=== PATIENT | female | born 1975 | race Hispanic/Latino ===

== ENCOUNTER → 2021-01-07 | Outpatient (CLI) | payer MEDICAID | END | disposition home or self-care (01) | LOC: OIH 15:04 | PROVIDERS: ATTEND Internal Medicine | DX: M24.811 Other specific joint derangements of right shoulder, not elsewhere classified (principal); M23.90 Unspecified internal derangement of unspecified knee | CPT/HCPCS: 73030 ==

== ENCOUNTER → 2021-11-21 | Outpatient (CLI) | payer MEDICAID ==
[~2021-11-21] MED LIST: CEFAZOLIN SODIUM 1 GM VIAL ONE; PAPAVERINE HCL 30 MG/ML 2ML VIAL ONE
== END | disposition home or self-care (01) ==
LOC: SHCH 12:48
PROVIDERS: ATTEND Student in an Organized Health Care Education/Training Program
DX: R94.31 Abnormal electrocardiogram [ECG] [EKG] (principal)
CPT/HCPCS: 93306; J2440; J0690; J1644

== ENCOUNTER → 2021-11-22 | Outpatient (CLI) | payer MEDICAID ==
[~2021-11-22] MED LIST changes: -CEFAZOLIN SODIUM 1 GM VIAL ONE; -PAPAVERINE HCL 30 MG/ML 2ML VIAL ONE; +REGADENOSON 0.4 MG/5 ML PF SYG IVP SCH
== END | disposition home or self-care (01) ==
LOC: SHCH 09:21
PROVIDERS: ATTEND Student in an Organized Health Care Education/Training Program
DX: R94.31 Abnormal electrocardiogram [ECG] [EKG] (principal)
CPT/HCPCS: 78452; 96374; 93017; J2785; A9500 ×2

== ENCOUNTER → 2022-07-24 | Outpatient (CLI) | payer MEDICAID | END | disposition home or self-care (01) | LOC: RAH 13:28 | PROVIDERS: ATTEND Obstetrics & Gynecology | DX: R10.2 Pelvic and perineal pain (principal) | CPT/HCPCS: 76856 ==

== ENCOUNTER 2023-12-12 14:41 | Emergency (ER) | payer BC, MEDICAID ==
[~2023-12-12] VITALS: Ht 152.4 cm; Wt 71.7 kg
[2023-12-12 14:43] VITALS: TEMP 98.3
[2023-12-12 15:00] LABS: BASOPHILS # (AUTO) 0.03 K/uL (0.00-0.20); BASOPHILS % (AUTO) 0.3 % (0.0-5.0); EOSINOPHILS # (AUTO) 0.12 K/uL (0.00-0.70); HEMATOCRIT 37.8 % (36-48); IMMATURE GRANULOCYTE ABSOLUTE 0.06 K/uL (0-1); LYMPHOCYTES # (AUTO) 3.5 K/uL (1.0-4.8); MEAN CORPUSCULAR HEMOGLOBIN 29.2 pg (27.0-33.0); MEAN CORPUSCULAR HGB CONC 33.6 g/dL (32.0-36.0); MEAN CORPUSCULAR VOLUME 86.9 fL (79-99); MONOCYTES # (AUTO) 0.7 K/uL (0.1-1.0); MONOCYTES % (AUTO) 5.6 % (3.0-13.0); NEUTROPHILS # (AUTO) 7.3 K/uL (1.8-7.7); NEUTROPHILS % (AUTO) 62.6 % (40.0-77.0); PLATELET COUNT (AUTO) 341 K/uL (130-400); RED BLOOD CELL COUNT(AUTO) 4.35 MIL/uL (4.00-5.50); RED CELL DISTRIBUTION WIDTH 12.6 % (11.0-15.5); WHITE BLOOD COUNT (AUTO) 11.7 K/uL (4.8-10.8)
[2023-12-12 15:09] LABS: CREATININE 0.7 mg/dL (0.5-1.0); POTASSIUM 3.9 mmol/L (3.5-5.1)
[2023-12-12 15:34] LABS: B-TYPE NATRIURETIC PEPTIDE 8 pg/mL (0-100)
[2023-12-12] MEDS: ASPIRIN 325MG TAB PO ONE (15:42)
[2023-12-12 16:27] VITALS: BP 135/81; PULSE 86; RESP 17; O2SAT 99
[2023-12-12] MEDS ORDERED: IBUP-2077 PO (16:27)
== END 2023-12-12 16:41 | disposition home or self-care (01) ==
LOC: EDH 14:41
DX: R07.89 Other chest pain (principal); E11.65 Type 2 diabetes mellitus with hyperglycemia; I21.9 Acute myocardial infarction, unspecified; Z90.49 Acquired absence of other specified parts of digestive tract
CPT/HCPCS: 36415; 71045; 80048; 82550; 83880; 84484; 85025; 93005

== ENCOUNTER 2024-06-16 19:26 | Observation (INO) | payer BC, OTHER ==
[~2024-06-16] VITALS: Ht 152.4 cm; Wt 78.9 kg
[~2024-06-16 19:26] MED LIST changes: +IBUP-2077 PO; -REGADENOSON 0.4 MG/5 ML PF SYG IVP SCH
[2024-06-16 20:04] LABS: BASOPHILS # (AUTO) 0.04 K/uL (0.00-0.20); BASOPHILS % (AUTO) 0.2 % (0.0-5.0); EOSINOPHILS # (AUTO) 0.02 K/uL (0.00-0.70); EOSINOPHILS % (AUTO) 0.1 % (0.0-8.0); HEMATOCRIT 39.9 % (36-48); IMMATURE GRANULOCYTE ABSOLUTE 0.09 K/uL (0-1); LYMPHOCYTES # (AUTO) 1.4 K/uL (1.0-4.8); LYMPHOCYTES % (AUTO) 7.9 % (21.0-51.0); MEAN CORPUSCULAR HEMOGLOBIN 29.2 pg (27.0-33.0); MEAN CORPUSCULAR HGB CONC 33.1 g/dL (32.0-36.0); MEAN CORPUSCULAR VOLUME 88.3 fL (79-99); MONOCYTES # (AUTO) 0.2 K/uL (0.1-1.0); NEUTROPHILS # (AUTO) 15.6 K/uL (1.8-7.7); NEUTROPHILS % (AUTO) 90.3 % (40.0-77.0); PLATELET COUNT (AUTO) 352 K/uL (130-400); RED BLOOD CELL COUNT(AUTO) 4.52 MIL/uL (4.00-5.50); WHITE BLOOD COUNT (AUTO) 17.3 K/uL (4.8-10.8)
[2024-06-16] MEDS: Solu-medROL 125MG VIAL IVP ONE (20:06)
[2024-06-16 20:15] LABS: CREATININE 0.9 mg/dL (0.5-1.0); POTASSIUM 4.9 mmol/L (3.5-5.1)
--- NOTE | 2024-06-16 20:15 | ERN ---
ED Note History of Present Illness Stated Complaint: C/O CP, SOB,UPPER BACK PAIN, COUGH W/PHLEGM Chief Complaint: Shortness of Breath Time Seen by MD: 19:44 Dictation: This is a 49-year-old female who presented to the emergency room complaining of lower chest pain cough and congestion for the past few days. She stated that she felt severe chills and was seen at a facility yesterday were labs were drawn and influenza COVID were negative. Chest x-ray was reported as a possible bilateral prominent vascular markings or interstitial markings suggestive of a bronchitis or bronchiolitis. She came into the emergency room here stating that she wanted to be re-evaluated here. She has a very slight cough with small amounts of mucoid sputum. No hemoptysis no recent travel or new pets at home. She gives a history of severe constipation at times not having a bowel movement for 4-5 days. We will dietary habits with no consumption of any vegetables or fiber. No other family members have been sick. Temperature 98.1 pulse 94 respirations 20 blood pressure 165/92 with a pulse oximetry of 98% on room air Allergies: Coded Allergies: No Known Drug Allergies (Verified Allergy, Unknown, 11/21/21) Home Meds Active Scripts Ibuprofen (Ibuprofen 800 mg Tab) 800 Mg Tab, 800 MG PO Q8H PRN for fever or pain, #30 TAB 0 Refills Prov:SOLEDAD AGUILAR IT COMMUNICATIONS MANAGER 12/12/23 Past Medical History Past Medical History: Diabetes-Type II, High Cholesterol, Hypertension Additional Past Medical Hx: BELLS PALSY Surgical History: Appendectomy Family History: Negative Social History: Negative History: Not Applicable RN Note Reviewed/Agreed w/PFSH: Yes Review of System Dictation Constitutional: Positive for for fever,chills, and denies weight loss Eyes: Negative for injury, pain,redness, and discharge ENT: Negative for injury,pain or swelling Cardiovascular: Negative for chest pain, palpitations, and edema Respiratory: Positive for shortness of breath, positive for slight cough, and congestion Abdomen/GI: Positive for right flank pain but denied abdominal pain, nausea, vomiting, diarrhea, and positive for severe constipation last bowel movement 4 or 5 days ago Back: Negative for injury and pain : Negative for injury, bleeding and discharge MS/Extremity: Negative for injury and deformity Skin: Negative for rash, and discoloration Neuro: Negative for headache, weakness, numbness, tingling, and seizure Psych: Negative for suicide ideation, homicidal ideation, and hallucinations Initial Vital Sign VS Vital Signs Date Time Temp Pulse Resp B/P (MAP) Pulse Ox O2 Delivery O2 Flow Rate FiO2 06/16/24 19:29 98.1 94 20 165/92 98 Room Air 06/16/24 19:58 0 21 Physical Exam Dictation General: awake, alert, NAD Head/Face: Normocephalic, atraumatic Eyes: PERRL, EOMI, vision at baseline ENT: oral cavity clear, TMs clear, no signs of infection Neck: Trachea midline, supple, no nuchal rigidity Cardiovascular: RRR, normal S1/S2, No MRGs, no JVD Respiratory: CTAB, no respiratory distress, No rales or wheezes Abdomen: Soft, non-tender, non-distended, normal bowel sounds, no guarding or rebound. Skin: Warm, dry, normal turgor, no rash MS/Extremity: Pulses equal, no cyanosis, neurovascular intact, FROM Neuro: COAx4, GCS 15, strength 5/5, CN 2-12 intact, normal cerebellar exam, normal gait, Psych: Normal behavior, mood, and affect normal Extremities-trace edema without any palpable cords, Homans sign is negative Results (Laboratory/Radiology) Laboratory/Radiology Laboratory Tests Test 06/16/24 19:52 06/16/24 19:57 06/16/24 21:24 White Blood Count 17.3 K/uL (4.8-10.8) H Red Blood Count 4.52 MIL/uL (4.00-5.50) Hemoglobin 13.2 g/dL (12.0-16.0) Hematocrit 39.9 % (36-48) Mean Corpuscular Volume 88.3 fL (79-99) Mean Corpuscular Hemoglobin 29.2 pg (27.0-33.0) Mean Corpuscular Hemoglobin Concent 33.1 g/dL (32.0-36.0) Red Cell Distribution Width 13.0 % (11.0-15.5) Platelet Count 352 K/uL (130-400) Mean Platelet Volume 9.6 fL (7.5-10.5) Immature Granulocyte % (Auto) 0.5 % (0-1) Neutrophils (%) (Auto) 90.3 % (40.0-77.0) H Lymphocytes (%) (Auto) 7.9 % (21.0-51.0) L Monocytes (%) (Auto) 1.0 % (3.0-13.0) L Eosinophils (%) (Auto) 0.1 % (0.0-8.0) Basophils (%) (Auto) 0.2 % (0.0-5.0) Neutrophils # (Auto) 15.6 K/uL (1.8-7.7) H Lymphocytes # (Auto) 1.4 K/uL (1.0-4.8) Monocytes # (Auto) 0.2 K/uL (0.1-1.0) Eosinophils # (Auto) 0.02 K/uL (0.00-0.70) Basophils # (Auto) 0.04 K/uL (0.00-0.20) Absolute Immature Granulocyte (auto 0.09 K/uL (0-1) Nucleated Red Blood Cells 0.0 % (0.0-0.19) White Cell Morphology Comment See comments Sodium Level 136 mmol/L (136-145) Potassium Level 4.9 mmol/L (3.5-5.1) Chloride Level 101 mmol/L (101-111) Carbon Dioxide Level 26 mmol/L (21-32) Blood Urea Nitrogen 15 mg/dL (7-18) Creatinine 0.9 mg/dL (0.5-1.0) Glomerular Filtration Rate Calc 78 mL/min (>90) Random Glucose 233 mg/dL (70-105) H Total Calcium 9.4 mg/dL (8.5-10.1) Human Chorionic Gonadotropin, Quant 1 mIU/mL (0-5) Influenza Type A Antigen Negative For Type A Influenza Type B Antigen Negative For Type B SARS-CoV-2, RNA, NAAT NEGATIVE SARS CoV-2 Group A Streptococcus Rapid negative (NEGATIVE) Urine Color COLORLESS (YELLOW) Urine Appearance CLEAR (CLEAR) Urine pH 5.0 (5.0-8.0) Urine Specific [place] 1.025 (1.001-1.031) Urine Protein NEGATIVE mg/dL (NEGATIVE) Urine Glucose (UA) >=1000 mg/dL (NEGATIVE) H Urine Ketones NEGATIVE mg/dL (NEGATIVE) Urine Occult Blood NEGATIVE (NEGATIVE) Urine Nitrate NEGATIVE (NEGATIVE) Urine Bilirubin NEGATIVE mg/dL (NEGATIVE) Urine Urobilinogen 0.2 mg/dL (0.2-1.0) Urine Leukocyte Esterase NEGATIVE Manny/uL Urine RBC 0-1 /HPF (0-1) Urine WBC 0-1 /HPF (0-1) Urine Squamous Epithelial Cells RARE /HPF (0-2) Urine Bacteria None /HPF (None Seen) Labs Reviewed?: Yes EKG Comment: Twelve lead EKG done on 06/16/2024 at 7:34 p.m. showed a heart rate of 94, IA interval 170, QRS 106, QT/QTC 379/475 Impression sinus tachycardia mild with wandering baseline with appearance of ST elevations in the inferior leads however no other acute changes were noted. EKG rhythm strip-normal sinus rhythm with no acute STT wave changes noted. Interpreted by ER MD Dr. Murray X-RAY Comment: REASON: Dyspnea/SOB ORDERING PHYSICIAN: YI MURRAY MD PROCEDURE: CXR1VW - CHEST 1VW PORTABLE CHEST RADIOGRAPH INDICATION: Dyspnea/SOB COMPARISON: 12/12/2023 FINDINGS: Heart size is normal. The pulmonary vascularity and simon appear normal. No abnormal pulmonary parenchymal opacity or consolidation identified. No significant pleural effusion noted. No pneumothorax detected. IMPRESSION: No radiographic evidence for any acute cardiopulmonary process. DICTATED BY: JOSE ISBELL MD DATE: 06/16/242020 ELECTRONICALLY SIGNED BY: JOSE ISBELL MD DATE: 06/16/242022 ED Course ED Course Orders Procedure Category Date Status Time Cbc With Differential LAB 06/16/24 Complete 19:45 Hcg,Quantitative LAB 06/16/24 Complete 19:45 Chest 1vw RAD 06/16/24 Resulted 19:45 Ipratropium/Albuterol PHA 06/16/24 Complete Neb (Duoneb) 20:00 Methylprednisolone PHA 06/16/24 Complete Succ 125mg (Solu-Medr 20:00 Basic Metabolic Panel LAB 06/16/24 Complete 19:45 Covid Rna Naat LAB 06/16/24 Complete 20:10 Influenza Type A & B, LAB 06/16/24 Complete Rapid 20:10 Rapid (Group A Strep) LAB 06/16/24 Complete 20:10 Covid19 (Sars Antigen LAB 06/16/24 Logged Rapid) 21:05 Rapid (Group A Strep) LAB 06/16/24 Logged 21:05 Urinalysis Profile LAB 06/16/24 Complete 21:05 0.9% Nacl 500ml PHA 06/16/24 Complete Iv.Soln (Ns 500ml 21:30 Ketorolac PHA 06/16/24 Complete Tromethamine 15mg/Ml 21:30 Ceftriaxone 1g Vial PHA 06/16/24 Complete (Rocephine 1g Inj) 22:30 Current Medications Medications (Trade) Dose Ordered Sig/Kinga Route PRN Reason Start Time Stop Time Status Last Admin Dose Admin Albuterol (DUOneb) 1 udvial ONCE ONCE IH 06/16/24 20:00 06/16/24 20:01 DC 06/16/24 22:03 Ceftriaxone Sodium (ROCEphine 1G INJ) 1 gm ONCE ONCE IVPB 06/16/24 22:30 06/16/24 22:31 DC 06/16/24 23:00 Ketorolac Tromethamine (toRADol) 15 mg ONCE ONCE IV 06/16/24 21:30 06/16/24 21:31 DC 06/16/24 21:17 Methylprednisolone Sodium Succinate (Solu-medROL 125MG) 125 mg ONCE ONCE IVP 06/16/24 20:00 06/16/24 20:01 DC 06/16/24 20:06 Sodium Chloride 500 ml @ 0 mls/hr ONCE ONCE IV 06/16/24 21:30 06/16/24 21:31 DC 06/16/24 21:20 Vital Signs Date Time Temp Pulse Resp B/P (MAP) Pulse Ox O2 Delivery O2 Flow Rate FiO2 06/16/24 22:05 88 17 N/A Room Air 21 06/16/24 22:05 88 17 06/16/24 19:58 98.1 99 18 110/78 99 Room Air* 0 21 06/16/24 19:29 98.1 94 20 165/92 98 Room Air We will perform diagnostic labs, advanced imaging and administer medications according to the patient's complaint. Once the results are available, will review and personally interpreted the labs to rule out any acute life- threatening emergency the trach require immediate intervention and treatment. I will then re-evaluate the patient after treatment and diagnostic exams have return to determine whether the patient requires any further testing, can safely be discharged home or need further admission to hospital for additional treatment and evaluation. Labs reviewed serum test is negative, glucose is 233 BNP 7 otherwise is with in normal limits CBC shows a white count of 17.3 hemoglobin of 13.2 platelets 352 Chest x-ray is negative for any acute pneumonia. However bilateral interstitial prominence could reflect pneumonitis/atypical pneumonia 11:40 p.m. patient accepted by Dr. Forte for admission and management Medical Decision Making MDM MDM: Differential diagnosis: Bronchitis, bronchiolitis, pneumonitis, community- acquired pneumonia Rationale: Tests considered and ordered secondary to shared decision making include: labs, ECG and radiology Previous outside records reviewed: Old ER visits. Risk of complication and/or morbidity or mortality of patient management: None Medications-Per medication reconciliation Need for hospitalization: Patient does meet criteria for hospitalization. Need for emergency major/minor surgery: No There are no social concerns with this patient. Prescription drug management Prescriptions will include symptomatic care Patient's prior external medical records from other ER visits were reviewed by me as indicated. Prior testing and results from previous visits were reviewed. Prior tests were taken into account with medical decision making and resource utilization, independent historian/historians were used to obtain complete medical history. I independently interpreted the test that were performed, results were reviewed by me and considered findings on radiology if ordered. Medical management and examination interpretation discussions were had by me with other qualified healthcare professionals as indicated for the patient's c are. Problem List Problem List: (1) Pneumonitis (2) Leukocytosis (3) Uncontrolled diabetes mellitus (4) Atypical chest pain DX & DISP Disposition: Inpatient Decision to Admit Time: 23:28 Departure Impression: Primary Impression: Pneumonitis Additional Impressions: Uncontrolled diabetes mellitus, Leukocytosis, Atypical chest pain Condition: Stable Additional Instructions: Patient was informed of all the diagnostic labs and procedures conducted in the emergency room today and demonstrated understanding of the results. I personally reviewed and interpreted all the diagnostic exams performed in the ER today. The patient will be admitted to the hospital for further treatment and evaluation. Disposition-admit to facility Condition-stable/guarded Course-uncertain at this time Pain status-decreased Assessment-exam unchanged Admission Certification- I certify that the patients status is appropriate and is based on my best clinical judgment and the patient's condition as documented in the medical records Referrals: JUAN CARLOS FORTE MD (PCP) YI MURRAY MD June 16, 2024 20:15
--- NOTE | 2024-06-16 20:23 | HMCIMG ---
PORTABLE CHEST RADIOGRAPH INDICATION: Dyspnea/SOB COMPARISON: 12/12/2023 FINDINGS: Heart size is normal. The pulmonary vascularity and simon appear normal. No abnormal pulmonary parenchymal opacity or consolidation identified. No significant pleural effusion noted. No pneumothorax detected. IMPRESSION: No radiographic evidence for any acute cardiopulmonary process.
[2024-06-16 20:43] LABS: RAPID GROUP A STREP negative (NEGATIVE)
[2024-06-16 20:47] LABS: SARS-CoV-2, RNA, NAAT NEGATIVE SARS CoV-2 (NEGATIVE)
[2024-06-16 20:53] LABS: INFLUENZA TYPE A Negative For Type A (NEGATIVE); INFLUENZA TYPE B Negative For Type B (NEGATIVE)
[2024-06-16] MEDS: ketOROlac 15MG/ML VIAL (15MG/ML) IV ONE (21:17)
[2024-06-16] MEDS: 0.9% NACL 500ML IV.SOLN 500 ML IV ONE (21:20)
[2024-06-16 21:35] LABS: ADD UA MICROSCOPIC YES; APPEARANCE,URINE CLEAR (CLEAR); BILIRUBIN,URINE NEGATIVE (NEGATIVE); COLOR,URINE COLORLESS (YELLOW); GLUCOSE, URINE (UA) >=1000 mg/dL (NEGATIVE); KETONES,URINE NEGATIVE (NEGATIVE); LEUKOCYTE ESTERASE ,URINE NEGATIVE Leu/uL (NEGATIVE); NITRATE,URINE NEGATIVE (NEGATIVE); OCCULT BLOOD,URINE NEGATIVE (NEGATIVE); PROTEIN,URINE NEGATIVE (NEGATIVE); UROBILINOGEN,URINE 0.2 mg/dL (0.2-1.0)
[2024-06-16 21:37] LABS: RBC,URINE 0-1 /HPF (0-1); SQUAMOUS EPITHELIAL CELL,UR RARE /HPF (0-2); WBC,URINE 0-1 /HPF (0-1)
[2024-06-16] MEDS: IpraTROPium/alBUTERol SULFATE 3 ML SOLUTION IH ONE (22:03)
[2024-06-16 22:05] VITALS: PULSE 88; RESP 17; O2SAT 99
[2024-06-16] MEDS: cefTRIAXone 1G VIAL IVPB ONE (23:00)
[2024-06-16] MEDS: 1/2 NS 1000ML 1,000 ML IV SCH (23:53)
[2024-06-16] MEDS: AZITHROMYCIN 500MG+NS 250ML 250 ML IVPB SCH (23:54)
[2024-06-16 23:55] VITALS: PULSE 86; RESP 17
[2024-06-16] MEDS: 0.9%NACL 1000ML 1,000 ML IV ONE (23:55)
[2024-06-17] VITALS (10 sets, daily range): BP systolic 104–127; BP diastolic 58–83; PULSE 73–110; RESP 17–19; TEMP 97.6–98.7; O2SAT 96–98
[2024-06-17] MEDS ORDERED: IpraTROPium/alBUTERol SULFATE 3 ML SOLUTION IH PRN
[2024-06-17] MEDS ORDERED: AZITHROMYCIN 500MG+NS 250ML 250 ML IVPB SCH
--- NOTE | 2024-06-17 00:12 | NUR ---
HOME MEDS NOT AVAIL AT BEDSIDE
[2024-06-17] MEDS: ondanSETRON 4MG INJ IVP ONE (01:17)
[2024-06-17] MEDS: IpraTROPium/alBUTERol SULFATE 3 ML SOLUTION IH SCH (06:00)
[2024-06-17 07:03] LABS: BASOPHILS # (AUTO) 0.02 K/uL (0.00-0.20); BASOPHILS % (AUTO) 0.2 % (0.0-5.0); EOSINOPHILS # (AUTO) 0.02 K/uL (0.00-0.70); EOSINOPHILS % (AUTO) 0.2 % (0.0-8.0); HEMATOCRIT 38.9 % (36-48); IMMATURE GRANULOCYTE ABSOLUTE 0.07 K/uL (0-1); LYMPHOCYTES # (AUTO) 1.1 K/uL (1.0-4.8); LYMPHOCYTES % (AUTO) 9.6 % (21.0-51.0); MEAN CORPUSCULAR HGB CONC 32.9 g/dL (32.0-36.0); MONOCYTES # (AUTO) 0.1 K/uL (0.1-1.0); MONOCYTES % (AUTO) 0.8 % (3.0-13.0); NEUTROPHILS # (AUTO) 9.8 K/uL (1.8-7.7); NEUTROPHILS % (AUTO) 88.6 % (40.0-77.0); PLATELET COUNT (AUTO) 326 K/uL (130-400); RED BLOOD CELL COUNT(AUTO) 4.42 MIL/uL (4.00-5.50); RED CELL DISTRIBUTION WIDTH 12.8 % (11.0-15.5); WHITE BLOOD COUNT (AUTO) 11.1 K/uL (4.8-10.8)
[2024-06-17 07:31] LABS: CREATININE 0.6 mg/dL (0.5-1.0); POTASSIUM 4.6 mmol/L (3.5-5.1)
[2024-06-17 07:59] LABS: CREATINE KINASE, TOTAL 50 U/L (21-232)
[2024-06-17] MEDS ORDERED: ALPRAZolam 0.5 MG TABLET PO PRN (08:00)
--- NOTE | 2024-06-17 08:15 | CONS ---
GASTROENTEROLOGY CONSULTATION NOTE Date of Consultation: June 17, 2024 Time of Consultation: 08:15 History of Present Illness: This is a 49-year-old female with past medical history of diabetes, hyperlipidemia, hypertension who presented due to chest pain, cough and congestion. She was told she had pneumonia by PCP. We were consulted due to abdominal pain. Patient does take Ozempic for diabetes for which she has been on for 6 months. She reports constipation. She has right upper quadrant pain. Abdominal ultrasound revealing fatty liver and hepatomegaly. CBD is normal in size. Review of Systems: CONSTITUTIONAL: No malaise or change in sensation of wellbeing. ENMT: No rhinorrhea, otorrhea, sinus pain, ear ache. CARDIOVASCULAR: No angina, palpitations, orthopnea or paroxysmal dyspnea. RESPIRATORY: No SOB. GASTROINTESTINAL: No abdominal pain, nausea, vomiting, diarrhea, hematemesis, melena or change in the patient's habitual bowel movements consistency/number. GENITOURINARY: No dysuria, hematuria or change in bladder continence. MUSCULOSKELETAL: No new muscle pain or decrease in muscular strength. No new joint swelling, redness or tenderness. SKIN: No new rash. Past Medical History: [ ] Past Surgical History: [ ] Past Social History: [ ] Family History: [ ] Coded Allergies: No Known Drug Allergies (Verified Allergy, Unknown, 11/21/21) Physical Exam: GEN: Awake, alert, oriented in person, time and place, and in no acute distress. HEENT: No sinus tenderness. Tympanic membranes were not examined. No rhinorrhea. Oral pharyngeal mucosa is pink, moist and within normal limits. Neck is supple with no cervical lymphadenopathy, thyromegaly or JVD. CHEST: Inspection, palpation and percussion of the chest were unremarkable. Lung auscultation revealed normal breath sounds bilaterally. CARDIAC: PMI is within normal limits. Heart sounds are regular. Normal S1, S2. No gallop or murmur. ABD: Soft, non-tender and not distended. No peritoneal signs on palpation. No organomegaly. Normal bowel sounds. EXT: No cyanosis or clubbing. No edema. SKIN: Intact. No rashes. JOINTS: No evidence of synovitis or acute arthritis. NEURO: Alert and oriented to name, place and person. Cranial nerve examination is unremarkable. No focal motor deficits. Normal speech. Gait is normal. Strength is normal. Vital Sign (Last 24 Hours) 5/9/25 5/9/25 5/9/25 02:53 04:00 06:27 Temp 98.6 Pulse 89 Resp 18 B/P (MAP) 118/60 Pulse Ox 96 O2 Delivery N/A Room Air O2 Flow Rate 0 FiO2 21 Laboratory: [ ] Laboratory: Test 06/17/24 06:47 06/17/24 02:27 06/16/24 21:24 06/16/24 19:57 Range/Units White Blood Count 11.1 #H 4.8-10.8 K/uL Red Blood Count 4.42 4.00-5.50 MIL/uL Hemoglobin 12.8 12.0-16.0 g/dL Hematocrit 38.9 36-48 % Mean Corpuscular Volume 88.0 79-99 fL Mean Corpuscular Hemoglobin 29.0 27.0-33.0 pg Mean Corpuscular Hemoglobin Concent 32.9 32.0-36.0 g/dL Red Cell Distribution Width 12.8 11.0-15.5 % Platelet Count 326 130-400 K/uL Mean Platelet Volume 9.6 7.5-10.5 fL Immature Granulocyte % (Auto) 0.6 0-1 % Neutrophils (%) (Auto) 88.6 H 40.0-77.0 % Lymphocytes (%) (Auto) 9.6 L 21.0-51.0 % Monocytes (%) (Auto) 0.8 L 3.0-13.0 % Eosinophils (%) (Auto) 0.2 0.0-8.0 % Basophils (%) (Auto) 0.2 0.0-5.0 % Neutrophils # (Auto) 9.8 H 1.8-7.7 K/uL Lymphocytes # (Auto) 1.1 1.0-4.8 K/uL Monocytes # (Auto) 0.1 0.1-1.0 K/uL Eosinophils # (Auto) 0.02 0.00-0.70 K/uL Basophils # (Auto) 0.02 0.00-0.20 K/uL Absolute Immature Granulocyte (auto 0.07 0-1 K/uL Nucleated Red Blood Cells 0.0 0.0-0.19 % Sodium Level 139 136-145 mmol/L Potassium Level 4.6 3.5-5.1 mmol/L Chloride Level 104 101-111 mmol/L Carbon Dioxide Level 24 21-32 mmol/L Blood Urea Nitrogen 17 7-18 mg/dL Creatinine 0.6 0.5-1.0 mg/dL Glomerular Filtration Rate Calc 110 >90 mL/min Random Glucose 182 H 70-105 mg/dL Total Calcium 9.4 8.5-10.1 mg/dL B-Type Natriuretic Peptide 21 0-100 pg/mL Whole Blood Glucose 260 H 70-110 MG/DL Urine Color COLORLESS YELLOW Urine Appearance CLEAR CLEAR Urine pH 5.0 5.0-8.0 Urine Specific [place] 1.025 1.001-1.031 Urine Protein NEGATIVE NEGATIVE mg/dL Urine Glucose (UA) >=1000 H NEGATIVE mg/dL Urine Ketones NEGATIVE NEGATIVE mg/dL Urine Occult Blood NEGATIVE NEGATIVE Urine Nitrate NEGATIVE NEGATIVE Urine Bilirubin NEGATIVE NEGATIVE mg/dL Urine Urobilinogen 0.2 0.2-1.0 mg/dL Urine Leukocyte Esterase NEGATIVE NEGATIVE Manny/uL Urine RBC 0-1 0-1 /HPF Urine WBC 0-1 0-1 /HPF Urine Squamous Epithelial Cells RARE 0-2 /HPF Urine Bacteria None None Seen /HPF Influenza Type A Antigen Negative For Type A NEGATIVE Influenza Type B Antigen Negative For Type B NEGATIVE SARS-CoV-2, RNA, NAAT NEGATIVE SARS CoV-2 NEGATIVE Group A Streptococcus Rapid negative NEGATIVE Test 06/16/24 19:52 Range/Units White Cell Morphology Comment See comments Human Chorionic Gonadotropin, Quant 1 0-5 mIU/mL Current Medications Medications (Trade) Dose Ordered Sig/Kinga Route PRN Reason Start Time Stop Time Status Last Admin Dose Admin Acetaminophen (TYLenol 325MG TAB) 650 mg Q6H PRN PO TEMPERATURE GREATER THAN 100 06/17/24 00:00 07/17/24 00:00 Albuterol (DUOneb) 1 udvial Q4HPRN PRN IH WHEEZING 06/17/24 00:00 07/17/24 00:00 Albuterol (DUOneb) 1 udvial [id number] IH 06/17/24 00:00 07/17/24 00:00 Alprazolam (XANax 0.5MG) 0.5 mg BID PRN PO ANXIETY/AGITATION 06/17/24 08:00 07/17/24 07:59 Azithromycin 250 ml @ 250 mls/hr Q24H IVPB 06/17/24 00:00 06/27/24 00:00 06/16/24 23:54 250 MLS/HR Azithromycin 250 ml @ 250 mls/hr Q24H IVPB 06/17/24 00:00 06/17/24 00:00 DC Ceftriaxone Sodium (ROCEphine 1G INJ) 1 gm Q24H IVPB 06/17/24 23:00 06/27/24 22:59 Enoxaparin Sodium (Lovenox) 40 mg DAILY SQ 06/17/24 09:00 07/17/24 08:59 Insulin Human Regular (humuLIN R 100 UNIT/ML 3ML) INSULIN SLIDING SCAL... ACHS SQ 06/17/24 11:30 07/17/24 11:29 Lactulose (Constulose 20gm/ 30ml Udcup) 20 gm Q6H6 PO 06/17/24 08:00 07/17/24 07:59 Methylprednisolone Sodium Succinate (Solu-medROL 40MG) 40 mg BID IVP 06/17/24 09:00 07/17/24 08:59 Methylprednisolone Sodium Succinate (Solu-medROL 125MG) 80 mg BID IVP 06/17/24 09:00 06/17/24 07:39 DC Sodium Chloride 1,000 ml @ 100 mls/hr Q10H IV 06/17/24 00:00 07/17/24 00:00 06/16/24 23:53 100 MLS/HR Diagnostics / Radiology: [COPY/PASTE HERE IF NO REPORTS PLEASE DELETE SECTION] Assessment: Upper abdominal pain Constipation DM Plan: EGD in am Miralax daily Continue GI prophylaxis Advance diet as tolerated Avoid NSAIDs Antireflux measures Monitor H&H and transfuse as needed Call with questions, concerns or change in clinical status Patient to follow-up at clinic post discharge Thank you for this consult JO ANN SANTA GRISTMILL OPERATOR June 17, 2024 08:15
--- NOTE | 2024-06-17 08:31 | HMCIMG ---
CT NONCONTRAST CHEST Comparison Study: none History: SOB Technique: Helical CT of the chest without IV contrast at 5 mm collimation. Coronal and sagittal reformations also done. CT Dose Index (CTDI): 2.38 mGy Dose Length Product (DLP): 94.8 total mGy-cm Findings: The airway is intact. The trachea and major bronchi are unremarkable. The chest exam shows no pulmonary nodules or masses. Benign right middle lobe calcified granuloma is seen. No significant pulmonary parenchymal abnormalities are noted. No pulmonary infiltrates or mass lesions are seen. No pleural effusions are identified. There is no pneumothorax. There is no evidence of pneumomediastinum. The nonenhanced exam of the simon and mediastinum is unremarkable. No evidence of hilar enlargement is seen. The aorta shows no aneurysmal dilatation or significant atheromatous calcification. No significant brachiocephalic vascular abnormalities are seen. The heart is unremarkable. It is not enlarged. No significant coronary arterial calcifications are seen. There is no pericardial effusion. The rib cage appears unremarkable. The soft tissues of the chest wall are unremarkable. The dorsal spine shows no significant abnormalities. IMPRESSION: NORMAL CT OF THE CHEST WITHOUT CONTRAST. This study was performed using dose reduction techniques to include automated exposure control and/or adjustment of the mA and/or kV according to patient size.
--- NOTE | 2024-06-17 08:51 | EKG ---
[facility] Test Date: 2024-06-16 Test Time: 19:34:25 Pat Name: NANCY ELLIOTT Department: [facility] Room: 417 1 Gender: F Telesales Agent: [id number] : [id number] Requested By: YI CABRAL Order Number: [id number] Reading MD: Ariel Flowers Measurements Intervals [place] Rate: 94 P: 25 [place]: 170 QRS: -42 QRSD: 106 T: 60 QT: 379 QTc: 475 Interpretive Statements Sinus rhythm Left anterior fascicular block Low voltage, precordial leads Consider anterior infarct ST elevation, consider inferior injury Compared to ECG 12/12/2023 14:56:06 Left anterior fascicular block now present Myocardial infarct finding now present ST (T wave) deviation now present Left-axis deviation no longer present Electronically Signed On 06-18-2024 12:31:50 CDT by Ariel Flowers Please click the below link to view image of tracing.
[2024-06-17] MEDS ORDERED: Solu-medROL 125MG VIAL IVP SCH (09:00)
--- NOTE | 2024-06-17 09:15 | NUR ---
DCP: HOME sw spoke to pt's Roddy Thurman [phone], who states pt has been denied twice for SSI despite her need for assistance walking, bathing dressing and grooming. Daughter Latasha Mohamud [phone] assists pt with ADLS and home management. Pt uses a walking stick, no HH or HD services. PCP is Fran Dai and uses [facility] for rx needs. DCP is home, per [place] provided information for Natasha Wilks for possible assistance with SSI application/process Addendum: 06/17/24 at 0919 by ROSE GERONIMO Amended: Links added.
--- NOTE | 2024-06-17 09:21 | HMCIMG ---
Exam Type: Complete abdominal ultrasound with hepatic color-flow Doppler Findings: The liver shows fatty infiltration and is enlarged, measuring 19 and is otherwise unremarkable. Doppler evaluation shows patent portal and hepatic veins. The gallbladder shows no significant abnormalities. Specifically, no calculi are seen. No bile duct dilatation is noted. The gallbladder wall measures 2 mm. The common bile duct measures 4 mm. The right kidney measures 11.5 x 5 cm. The left kidney measures 11.7 x 4.6 cm. The kidneys show no hydronephrosis or calculi, masses or other abnormalities. The pancreas is unremarkable. The spleen is unremarkable. The aorta and inferior vena cava show no significant abnormalities. IMPRESSION: FATTY LIVER INFILTRATION AND HEPATOMEGALY. OTHERWISE NORMAL ABDOMINAL ULTRASOUND.
[2024-06-17] MEDS: Solu-medROL 40MG VIAL IVP SCH (10:21)
[2024-06-17] MEDS: LACTULOSE 20 GM/30 ML UDCUP PO SCH (10:21)
[2024-06-17] MEDS: ENOXAPARIN SODIUM 40 MG/0.4 ML SYRINGE SQ SCH (10:22)
[2024-06-17] MEDS: INSULIN humuLIN R 100 UNIT/ML 3ML SQ SCH (11:30)
[2024-06-17] MEDS: MAGNESIUM CITRATE 296 ML SOLUTION PO ONE (14:45)
[2024-06-17] MEDS: cefTRIAXone 1G VIAL IVPB SCH (21:45)
--- NOTE | 2024-06-17 22:29 | HP ---
HISTORY AND PHYSICAL NOTE DATE OF CONSULTATION: 06/17/24 REASON FOR CONSULTATION: Shortness of breath HISTORY OF PRESENT ILLNESS: This is a 49-year-old female who presented to the emergency room complaining of lower chest pain cough and congestion for the past few days. She stated that she felt severe chills and was seen at a facility yesterday were labs were drawn and influenza COVID were negative. Chest x-ray was reported as a possible bilateral prominent vascular markings or interstitial markings suggestive of a bronchitis or bronchiolitis. She came into the emergency room here stating that she wanted to be re-evaluated here. She has a very slight cough with small amounts of mucoid sputum. No hemoptysis no recent travel or new pets at home. She gives a history of severe constipation at times not having a bowel movement for 4-5 days. We will dietary habits with no consumption of any vegetables or fiber. No other family members have been sick. Temperature 98.1 pulse 94 respirations 20 blood pressure 165/92 with a pulse oximetry of 98% on room air Allergies: Coded Allergies: No Known Drug Allergies (Verified Allergy, Unknown, 11/21/21) Home Meds Active Scripts Ibuprofen (Ibuprofen 800 mg Tab) 800 Mg Tab, 800 MG PO Q8H PRN for fever or pain, #30 TAB 0 Refills Prov:SOLEDAD AGUILAR INDUSTRIAL SERVICER 12/12/23 Past Medical History Past Medical History: Diabetes-Type II, High Cholesterol, Hypertension Additional Past Medical Hx: BELLS PALSY Surgical History: Appendectomy Family History: Negative Social History: Negative History: Not Applicable RN Note Reviewed/Agreed w/PFSH: Yes Review of System Dictation Constitutional: Positive for for fever,chills, and denies weight loss Eyes: Negative for injury, pain,redness, and discharge ENT: Negative for injury,pain or swelling Cardiovascular: Negative for chest pain, palpitations, and edema Respiratory: Positive for shortness of breath, positive for slight cough, and congestion Abdomen/GI: Positive for right flank pain but denied abdominal pain, nausea, vomiting, diarrhea, and positive for severe constipation last bowel movement 4 or 5 days ago Back: Negative for injury and pain : Negative for injury, bleeding and discharge MS/Extremity: Negative for injury and deformity Skin: Negative for rash, and discoloration Neuro: Negative for headache, weakness, numbness, tingling, and seizure Psych: Negative for suicide ideation, homicidal ideation, and hallucinations Initial Vital Sign VS Vital Signs Date Time Temp Pulse Resp B/P (MAP) Pulse Ox O2 Delivery O2 Flow Rate FiO2 06/16/24 19:29 98.1 94 20 165/92 98 Room Air 06/16/24 19:58 0 21 ALLERGIES: Coded Allergies: No Known Drug Allergies (Verified Allergy, Unknown, 11/21/21) HOME MEDS: Active Scripts Ibuprofen (Ibuprofen 800 mg Tab) 800 Mg Tab, 800 MG PO Q8H PRN for fever or pain, #30 TAB 0 Refills Prov:SOLEDAD AGUILAR NP 12/12/23 INPATIENT MEDS: Current Medications Medications Dose Ordered Sig/Kinga Start Time Stop Time Status Last Admin Sodium Chloride 1,000 ml @ 100 mls/hr Q10H 06/17/24 00:00 07/17/24 00:00 06/16/24 23:53 Azithromycin 250 ml @ 250 mls/hr Q24H 06/17/24 00:00 06/27/24 00:00 06/16/24 23:54 Ceftriaxone Sodium 1 gm Q24H 06/17/24 23:00 06/27/24 22:59 06/17/24 21:45 Albuterol 1 udvial [id number] 06/17/24 00:00 07/17/24 00:00 Albuterol 1 udvial Q4HPRN PRN 06/17/24 00:00 07/17/24 00:00 Enoxaparin Sodium 40 mg DAILY 06/17/24 09:00 07/17/24 08:59 06/17/24 10:22 Acetaminophen 650 mg Q6H PRN 06/17/24 00:00 07/17/24 00:00 Methylprednisolone Sodium Succinate 40 mg BID 06/17/24 09:00 07/17/24 08:59 06/17/24 21:45 Lactulose 20 gm Q6H6 06/17/24 08:00 07/17/24 07:59 06/17/24 14:45 Insulin Human Regular INSULIN SLIDING SCAL... ACHS 06/17/24 11:30 07/17/24 11:29 06/17/24 21:46 Alprazolam 0.5 mg BID PRN 06/17/24 08:00 07/17/24 07:59 VITAL SIGNS Vital Signs Date Time Temp Pulse Resp B/P (MAP) Pulse Ox O2 Delivery O2 Flow Rate FiO2 06/17/24 20:15 97.5 88 18 104/58 99 Room Air 06/17/24 18:30 83 18 N/A Room Air 06/17/24 16:08 97.7 89 19 127/69 96 Room Air 06/17/24 12:19 98.1 94 19 120/83 95 Room Air 06/17/24 08:00 98.8 87 19 125/75 97 Room Air 06/17/24 08:00 Room Air* 0 06/17/24 06:27 89 18 N/A Room Air 06/17/24 04:00 98.6 92 18 118/60 96 06/17/24 02:53 96 Room Air* 0 06/17/24 02:30 98.2 110 18 118/66 96 Room Air 06/17/24 00:10 98.1 82 17 120/68 98 Room Air* 0 06/16/24 23:55 86 17 PHYSICAL EXAM Physical Exam Dictation General: awake, alert, NAD Head/Face: Normocephalic, atraumatic Eyes: PERRL, EOMI, vision at baseline ENT: oral cavity clear, TMs clear, no signs of infection Neck: Trachea midline, supple, no nuchal rigidity Cardiovascular: RRR, normal S1/S2, No MRGs, no JVD Respiratory: CTAB, no respiratory distress, No rales or wheezes Abdomen: Soft, non-tender, non-distended, normal bowel sounds, no guarding or rebound. Skin: Warm, dry, normal turgor, no rash MS/Extremity: Pulses equal, no cyanosis, neurovascular intact, FROM Neuro: COAx4, GCS 15, strength 5/5, CN 2-12 intact, normal cerebellar exam, normal gait, Psych: Normal behavior, mood, and affect normal Extremities-trace edema without any palpable cords, Homans sign is negative LABORATORY RESULTS Laboratory Tests 06/16/24 19:52: White Blood Count 17.3, Red Blood Count 4.52, Hemoglobin 13.2, Hematocrit 39.9, Mean Corpuscular Volume 88.3, Mean Corpuscular Hemoglobin 29.2, Mean Corpuscular Hemoglobin Concent 33.1, Red Cell Distribution Width 13.0, Platelet Count 352, Mean Platelet Volume 9.6, Immature Granulocyte % (Auto) 0.5, Neutrophils (%) (Auto) 90.3, Lymphocytes (%) (Auto) 7.9, Monocytes (%) (Auto) 1.0, Eosinophils (%) (Auto) 0.1, Basophils (%) (Auto) 0.2, Neutrophils # (Auto) 15.6, Lymphocytes # (Auto) 1.4, Monocytes # (Auto) 0.2, Eosinophils # (Auto) 0.02, Basophils # (Auto) 0.04, Absolute Immature Granulocyte (auto 0.09, Nucleated Red Blood Cells 0.0, White Cell Morphology Comment See comments, Sodium Level 136, Potassium Level 4.9, Chloride Level 101, Carbon Dioxide Level 26, Blood Urea Nitrogen 15, Creatinine 0.9, Glomerular Filtration Rate Calc 78, Random Glucose 233, Total Calcium 9.4, Human Chorionic Gonadotropin, Quant 1 06/16/24 19:57: Influenza Type A Antigen Negative For Type A, Influenza Type B Antigen Negative For Type B, SARS-CoV-2, RNA, NAAT NEGATIVE SARS CoV-2, Group A Streptococcus Rapid negative 06/16/24 21:24: Urine Color COLORLESS, Urine Appearance CLEAR, Urine pH 5.0, Urine Specific [place] 1.025, Urine Protein NEGATIVE, Urine Glucose (UA) >=1000, Urine Ketones NEGATIVE, Urine Occult Blood NEGATIVE, Urine Nitrate NEGATIVE, Urine Bilirubin NEGATIVE, Urine Urobilinogen 0.2, Urine Leukocyte Esterase NEGATIVE, Urine RBC 0-1, Urine WBC 0-1, Urine Squamous Epithelial Cells RARE, Urine Bacteria None 06/17/24 02:27: Whole Blood Glucose 260 06/17/24 06:47: White Blood Count 11.1, Red Blood Count 4.42, Hemoglobin 12.8, Hematocrit 38.9, Mean Corpuscular Volume 88.0, Mean Corpuscular Hemoglobin 29.0, Mean Corpuscular Hemoglobin Concent 32.9, Red Cell Distribution Width 12.8, Platelet Count 326, Mean Platelet Volume 9.6, Immature Granulocyte % (Auto) 0.6, Neutrophils (%) (Auto) 88.6, Lymphocytes (%) (Auto) 9.6, Monocytes (%) (Auto) 0.8, Eosinophils (%) (Auto) 0.2, Basophils (%) (Auto) 0.2, Neutrophils # (Auto) 9.8, Lymphocytes # (Auto) 1.1, Monocytes # (Auto) 0.1, Eosinophils # (Auto) 0.02, Basophils # (Auto) 0.02, Absolute Immature Granulocyte (auto 0.07, Nucleated Red Blood Cells 0.0, Sodium Level 139, Potassium Level 4.6, Chloride Level 104, Carbon Dioxide Level 24, Blood Urea Nitrogen 17, Creatinine 0.6, Glomerular Filtration Rate Calc 110, Random Glucose 182, Total Calcium 9.4, Total Creatine Kinase 50, Troponin I High Sensitivity < 4.0, B-Type Natriuretic Peptide 21 06/17/24 15:04: Whole Blood Glucose 317 06/17/24 20:15: Whole Blood Glucose 333 PROBLEM LIST: (1) Leukocytosis ICD Codes: D72.829 - Elevated white blood cell count, unspecified (2) Pneumonitis ICD Codes: J98.4 - Other disorders of lung (3) Uncontrolled diabetes mellitus (4) Atypical chest pain ICD Codes: R07.89 - Other chest pain PLAN Empiric antibiotics for possible pneumonitis minimally symptomatic Underlying severe anxiety symptomatic treatment Sliding scale for diabetes JUAN CARLOS FORTE MD June 17, 2024 22:29
[2024-06-18] VITALS (20 sets, daily range): BP systolic 98–135; BP diastolic 44–79; PULSE 64–94; RESP 15–18; TEMP 97.5–98.4; O2SAT 98–100
[2024-06-18] MEDS: ondanSETRON 4MG INJ IVP PRN (02:02)
[2024-06-18] MEDS ORDERED: proPOFol 10 MG/ML 20ML VIAL IV ONE (07:04)
[2024-06-18] MEDS ORDERED: LIDOCAINE PF 100MG/5ML (2%) SYRINGE 5ML ONE (07:04)
[2024-06-18] MEDS: acetaMINOPHEN 325 MG TAB PO PRN (08:13)
--- NOTE | 2024-06-18 13:15 | NUR ---
PATIENT MADE AWARE DR. HCAVEZ'S ORDER FOR PATIENT TO CONTINUE WITH ANTIBIOTICS PREVIOUSLY PRESCRIBED BY DR. FORTE OUTPATIENT, NO NEW ANTIBIOTICS OR OTHER MEDICATIONS AT THIS TIME. MADE AWARE OF GI RECOMMENDATIONS FOR MIRALAX DAILY TO PREVENT CONSTIPATION, MAY PURCHASE OVER THE COUNTER, VERBALIZED UNDERSTANDING.
--- NOTE | 2024-06-22 07:11 | DS ---
Discharge Summary DIAGNOSE(S): [Abdominal pain from constipation Pneumonitis] HOSPITAL COURSE SUMMARY: [Patient has longstanding diabetes recently started on Ozempic presented with abdominal pain noted with constipation disimpacted and symptoms relieved upper quadrant pain was from fatty liver consulted GI respiratory symptoms remained stable and was discharged] INTERNET MARKETING MANAGER(S): [] PROCEDURE(S)/TREATMENT(S): [] PROBLEM(S): [] FOLLOW-UP TEST(S): [None] DISCHARGE INSTRUCTIONS: [Follow up with PCP in 2-3 days] Home Meds Active Scripts Ibuprofen (Ibuprofen 800 mg Tab) 800 Mg Tab, 800 MG PO Q8H PRN for fever or pain, #30 TAB 0 Refills Prov:SOLEDAD AGUILAR NP 12/12/23 JUAN CARLOS FORTE MD June 22, 2024 07:11
== END 2024-06-18 13:55 | disposition home or self-care (01) ==
LOC: EDH 19:26 → EDHIP 23:38 → 4CH 06-17 02:30
PROVIDERS: ADMIT Internal Medicine; ATTEND Internal Medicine
DX: K31.89 Other diseases of stomach and duodenum (principal); D72.829 Elevated white blood cell count, unspecified; R07.89 Other chest pain; J98.4 Other disorders of lung; E11.65 Type 2 diabetes mellitus with hyperglycemia; E78.00 Pure hypercholesterolemia, unspecified; I10 Essential (primary) hypertension; K76.0 Fatty (change of) liver, not elsewhere classified; M54.6 Pain in thoracic spine; R10.11 Right upper quadrant pain; R16.0 Hepatomegaly, not elsewhere classified; G51.0 Bell's palsy; K59.00 Constipation, unspecified; R10.2 Pelvic and perineal pain; Z20.822 Contact with and (suspected) exposure to COVID-19; Z79.899 Other long term (current) drug therapy; Z98.890 Other specified postprocedural states
CPT/HCPCS: 96376 ×4; 96365; 96375 ×2; 96367; 99285; 80048 ×2; 84702; 85025 ×2; 87040 ×2; 87880; 87804 ×2; 81001; 36415 ×2; 87635; 71045; 71250; 93005; 94640; 96372 ×2; 96366 ×2; 82550; 84484; 83880; 82948 ×6; 76700; 96361; 43239; G0378 ×35; J2919 ×4; J0456 ×2; J1885; J0696; J2405 ×2; J1650 ×2; J1815 ×3; J2003; J2704; A4620; A4215; A4223; A4222; J7030; A4606; 94664; J3490